=== PATIENT | female | born 1945 | race Caucasian/White ===

== ENCOUNTER 2018-04-04 11:30 | Inpatient (IN) | payer OTHER ==
[~2018-04-04] VITALS: Ht 157.5 cm; Wt 57.2 kg
[2018-04-13] MEDS ORDERED: NORVASC5 MG PO (12:41)
[2018-04-13] MEDS ORDERED: DIOVAN320 MG PO (12:41)
[2018-04-13] MEDS ORDERED: SYNTHROID88 MCG PO (12:41)
[2018-04-23] MEDS ORDERED: PERCOCET 5-3251 EACH PO (11:07)
[2018-04-23] MEDS ORDERED: INTESTINEX680 M1 PO (11:07)
== END 2018-04-23 12:44 | disposition home or self-care (01) | DRG 331 ==
LOC: O/R 04-20 06:00 → SURH 04-20 06:00
PROVIDERS: Surgery
PROC: 0DJD8ZZ Inspection of Lower Intestinal Tract, Via Natural or Artificial Opening Endoscopic (ICD-10-PCS; 2018-04-20)
PROC: 0DTN4ZZ Resection of Sigmoid Colon, Percutaneous Endoscopic Approach (ICD-10-PCS; principal; 2018-04-20 08:00)
DX: K57.30 Diverticulosis of large intestine without perforation or abscess without bleeding (principal); K59.02 Outlet dysfunction constipation

== ENCOUNTER → 2019-01-26 | Day surgery (SDC) | payer OTHER ==
[~2019-01-26] MED LIST: DIOVAN320 MG PO; INTESTINEX680 M1 PO; NORVASC5 MG PO; PERCOCET 5-3251 EACH PO; SYNTHROID88 MCG PO
== END | disposition home or self-care (01) ==
LOC: ADM 01-24 12:00 → AMB-ENDOS 05:35
DX: D12.2 Benign neoplasm of ascending colon (principal); D12.4 Benign neoplasm of descending colon; K64.4 Residual hemorrhoidal skin tags

== ENCOUNTER → 2019-05-25 | Day surgery (SDC) | payer OTHER | END | disposition home or self-care (01) | LOC: AMB-ENDOS → EDBD 05-19 11:00 → ADM 05-19 11:00 → AMB-ENDOS 06:30 | DX: K29.50 Unspecified chronic gastritis without bleeding (principal); K44.9 Diaphragmatic hernia without obstruction or gangrene ==